=== PATIENT | male | born 1980 | race Caucasian/White ===

== ENCOUNTER 2016-08-20 13:24 | Outpatient (CLI) | payer OTHER ==
[~2016-08-20 13:24] MED LIST: BENAZEPRIL10 MG PO; RISPERIDONE4 MG PO; ZYPREXA ZYDIS20 MG PO
== END 2016-08-20 20:43 | disposition home or self-care (01) ==
LOC: MLB 13:24
PROVIDERS: ATTEND Family Medicine
DX: I12.9 Hypertensive chronic kidney disease with stage 1 through stage 4 chronic kidney disease, or unspecified chronic kidney disease (principal); N18.2 Chronic kidney disease, stage 2 (mild); E78.5 Hyperlipidemia, unspecified; E16.2 Hypoglycemia, unspecified

== ENCOUNTER 2016-12-09 15:19 | Outpatient (CLI) | payer OTHER ==
[~2016-12-09 15:19] MED LIST changes: +BENA10TA4 PO; -BENAZEPRIL10 MG PO; -RISPERIDONE4 MG PO; -ZYPREXA ZYDIS20 MG PO; +[UNRECOGNIZED DRUG - CODE] PO
[2016-12-09 16:21] LABS: ALBUMIN 3.8 g/dL (3.4-5.0); ANION GAP 13.1 (8-16); CALCIUM 8.6 mg/dL (8.5-10.1); CARBON DIOXIDE 26.4 mmol/L (21-32); CREATININE 1.2 mg/dL (0.6-1.3); POTASSIUM 3.5 mmol/L (3.5-5.1); TOTAL BILIRUBIN 0.4 mg/dL (0.0-1.0); TOTAL PROTEIN, SERUM 7.2 g/dL (6.4-8.2)
== END 2016-12-09 21:52 | disposition home or self-care (01) ==
LOC: MLB 15:19
PROVIDERS: ATTEND Family Medicine
DX: E78.5 Hyperlipidemia, unspecified (principal)
CPT/HCPCS: 36415; 80053

== ENCOUNTER 2017-02-13 15:13 | Outpatient (CLI) | payer OTHER ==
[2017-02-13 16:04] LABS: ALBUMIN 3.9 g/dL (3.4-5.0); ANION GAP 12.4 (8-16); CALCIUM 8.8 mg/dL (8.5-10.1); CARBON DIOXIDE 27.2 mmol/L (21-32); CREATININE 1.4 mg/dL (0.7-1.3); POTASSIUM 3.6 mmol/L (3.5-5.1); TOTAL BILIRUBIN 0.4 mg/dL (0.0-1.0); TOTAL PROTEIN, SERUM 7.3 g/dL (6.4-8.2)
== END 2017-02-13 21:20 | disposition home or self-care (01) ==
LOC: MLB 15:13
PROVIDERS: ATTEND Family Medicine
DX: E78.5 Hyperlipidemia, unspecified (principal); N18.2 Chronic kidney disease, stage 2 (mild); R73.9 Hyperglycemia, unspecified
CPT/HCPCS: 36415; 80053

== ENCOUNTER 2017-05-26 15:13 | Outpatient (CLI) | payer OTHER ==
[2017-05-26 16:28] LABS: ALBUMIN 3.9 g/dL (3.4-5.0); ANION GAP 9.4 (8-16); CARBON DIOXIDE 29.2 mmol/L (21-32); CHOL/HDL RATIO 6.4 (1-4.5); CREATININE 1.5 mg/dL (0.7-1.3); POTASSIUM 3.6 mmol/L (3.5-5.1); TOTAL BILIRUBIN 0.5 mg/dL (0.0-1.0)
== END 2017-05-26 20:13 | disposition home or self-care (01) ==
LOC: MLB 15:13
PROVIDERS: ATTEND Family Medicine
DX: E78.5 Hyperlipidemia, unspecified (principal); R73.9 Hyperglycemia, unspecified
CPT/HCPCS: 36415; 80053; 83036

== ENCOUNTER 2017-07-16 16:18 | Outpatient (CLI) | payer OTHER ==
[2017-07-16 18:04] LABS: ALBUMIN 3.9 g/dL (3.4-5.0); ANION GAP 15.9 (8-16); CARBON DIOXIDE 23.6 mmol/L (21-32); CHOL/HDL RATIO 5.7 (1-4.5); CREATININE 1.2 mg/dL (0.7-1.3); POTASSIUM 3.5 mmol/L (3.5-5.1); THYROID STIMULATING HORMONE 0.92 uIU/mL (0.34-3.74); TOTAL BILIRUBIN 0.4 mg/dL (0.0-1.0)
== END 2017-07-16 20:58 | disposition home or self-care (01) ==
LOC: MLB 16:18
PROVIDERS: ATTEND Family Medicine
DX: I10 Essential (primary) hypertension (principal); E78.2 Mixed hyperlipidemia; R73.01 Impaired fasting glucose
CPT/HCPCS: 36415; 80053; 83036; 84443

== ENCOUNTER 2017-11-07 13:18 | Outpatient (CLI) | payer OTHER ==
[2017-11-07 15:15] LABS: ANION GAP 11.2 (8-16); CARBON DIOXIDE 29.2 mmol/L (21-32); CHOL/HDL RATIO 6.1 (1-4.5); CREATININE 1.2 mg/dL (0.7-1.3); POTASSIUM 3.4 mmol/L (3.5-5.1); TOTAL BILIRUBIN 0.6 mg/dL (0.0-1.0)
== END 2017-11-07 19:25 | disposition home or self-care (01) ==
LOC: MLB 13:18
PROVIDERS: ATTEND Family Medicine
DX: E78.5 Hyperlipidemia, unspecified (principal); E16.2 Hypoglycemia, unspecified; E11.22 Type 2 diabetes mellitus with diabetic chronic kidney disease; I12.9 Hypertensive chronic kidney disease with stage 1 through stage 4 chronic kidney disease, or unspecified chronic kidney disease; N18.3 Chronic kidney disease, stage 3 (moderate); F17.200 Nicotine dependence, unspecified, uncomplicated; J45.909 Unspecified asthma, uncomplicated
CPT/HCPCS: 36415; 80053; 83036

== ENCOUNTER 2018-01-07 12:50 | Outpatient (CLI) | payer OTHER ==
[2018-01-07 14:13] LABS: ALBUMIN 4.2 g/dL (3.4-5.0); ANION GAP 13.8 (8-16); CARBON DIOXIDE 26.6 mmol/L (21-32); CHOL/HDL RATIO 3.9 (1-4.5); CREATININE 1.1 mg/dL (0.7-1.3); POTASSIUM 3.4 mmol/L (3.5-5.1); TOTAL BILIRUBIN 0.5 mg/dL (0.0-1.0)
== END 2018-01-07 19:19 | disposition home or self-care (01) ==
LOC: MLB 12:50
PROVIDERS: ATTEND Family Medicine
DX: E78.2 Mixed hyperlipidemia (principal); E78.5 Hyperlipidemia, unspecified; E11.22 Type 2 diabetes mellitus with diabetic chronic kidney disease; I12.9 Hypertensive chronic kidney disease with stage 1 through stage 4 chronic kidney disease, or unspecified chronic kidney disease; N18.3 Chronic kidney disease, stage 3 (moderate); N17.9 Acute kidney failure, unspecified; E78.00 Pure hypercholesterolemia, unspecified; E03.9 Hypothyroidism, unspecified
CPT/HCPCS: 36415; 80053

== ENCOUNTER 2020-08-02 10:43 | Outpatient (CLI) | payer OTHER ==
[~2020-08-02 10:43] MED LIST changes: -BENA10TA4 PO; +BENA10TA59 PO
[2020-08-02 13:21] LABS: ALBUMIN 4.2 g/dL (3.4-5.0); ANION GAP 11.1 (8-16); CARBON DIOXIDE 27.9 mmol/L (21-32); CHOL/HDL RATIO 5.6 (1-4.5); CREATININE 1.1 mg/dL (0.6-1.3); THYROID STIMULATING HORMONE 0.94 uIU/mL (0.34-3.74); TOTAL BILIRUBIN 0.6 mg/dL (0.0-1.0)
[2020-08-03 08:08] LABS: T4 FREE (DIRECT) 1.22 ng/dL (0.82-1.77)
== END 2020-08-02 17:58 | disposition home or self-care (01) ==
LOC: MLB 10:43
PROVIDERS: ATTEND Family Medicine
DX: I12.9 Hypertensive chronic kidney disease with stage 1 through stage 4 chronic kidney disease, or unspecified chronic kidney disease (principal); N18.2 Chronic kidney disease, stage 2 (mild); E78.2 Mixed hyperlipidemia; F70 Mild intellectual disabilities; R73.01 Impaired fasting glucose; Z23 Encounter for immunization; Z68.25 Body mass index [BMI] 25.0-25.9, adult
CPT/HCPCS: 36415; 80053; 83036; 84439; 84443

== ENCOUNTER 2020-11-21 11:20 | Outpatient (CLI) | payer OTHER ==
[2020-11-21 12:29] LABS: CHOL/HDL RATIO 6.8 (1-4.5)
== END 2020-11-21 17:39 | disposition home or self-care (01) ==
LOC: MLB 11:20
PROVIDERS: ATTEND Family Medicine
DX: E78.2 Mixed hyperlipidemia (principal)
CPT/HCPCS: 36415

== ENCOUNTER 2021-01-15 09:15 | Outpatient (CLI) | payer OTHER ==
[2021-01-15 10:32] LABS: CHOL/HDL RATIO 6.8 (1-4.5)
== END 2021-01-15 20:22 | disposition home or self-care (01) ==
LOC: MLB 09:15
PROVIDERS: ATTEND Family Medicine
DX: E78.2 Mixed hyperlipidemia (principal)
CPT/HCPCS: 36415

== ENCOUNTER 2021-05-08 09:23 | Outpatient (CLI) | payer OTHER ==
[2021-05-08 11:12] LABS: ANION GAP 13.4 (8-16); CARBON DIOXIDE 26.6 mmol/L (21-32); CHOL/HDL RATIO 6.8 (1-4.5); CREATININE 1.1 mg/dL (0.6-1.3); THYROID STIMULATING HORMONE 1.29 uIU/mL (0.34-3.74); TOTAL BILIRUBIN 0.4 mg/dL (0.0-1.0)
== END 2021-05-08 22:02 | disposition home or self-care (01) ==
LOC: MLB 09:23
PROVIDERS: ATTEND Family Medicine
DX: I10 Essential (primary) hypertension (principal); E78.5 Hyperlipidemia, unspecified
CPT/HCPCS: 36415; 80053; 84443

== ENCOUNTER 2021-09-17 08:55 | Outpatient (CLI) | payer OTHER ==
[2021-09-17 10:24] LABS: ANION GAP 12.3 (8-16); CARBON DIOXIDE 28.8 mmol/L (21-32); CHOL/HDL RATIO 6.3 (1-4.5); CREATININE 1.2 mg/dL (0.6-1.3); POTASSIUM 4.1 mmol/L (3.5-5.1); TOTAL BILIRUBIN 0.4 mg/dL (0.0-1.0)
== END 2021-09-17 20:43 | disposition home or self-care (01) ==
LOC: MLB 08:55
PROVIDERS: ATTEND Family Medicine
DX: I10 Essential (primary) hypertension (principal); R73.01 Impaired fasting glucose; E78.2 Mixed hyperlipidemia
CPT/HCPCS: 36415; 80053; 83036

== ENCOUNTER 2022-03-05 08:41 | Outpatient (CLI) | payer OTHER ==
[2022-03-05 11:07] LABS: ALBUMIN 3.9 g/dL (3.4-5.0); CARBON DIOXIDE 24.5 mmol/L (21-32); CHOL/HDL RATIO 5.7 (1-4.5); CREATININE 1.2 mg/dL (0.6-1.3); POTASSIUM 3.5 mmol/L (3.5-5.1); TOTAL BILIRUBIN 0.7 mg/dL (0.0-1.0)
== END 2022-03-05 20:05 | disposition home or self-care (01) ==
LOC: MLB 08:41
PROVIDERS: ATTEND Family Medicine
DX: I10 Essential (primary) hypertension (principal); E78.2 Mixed hyperlipidemia
CPT/HCPCS: 36415; 80053

== ENCOUNTER 2022-07-09 08:14 | Outpatient (CLI) | payer OTHER ==
[2022-07-09 09:39] LABS: BASOPHILS # (AUTO) 0.1 K/uL (0.00-0.22); BASOPHILS % (AUTO) 1.1 % (0.0-2.0); EOSINOPHILS # (AUTO) 0.3 K/uL (0-0.4); EOSINOPHILS % (AUTO) 5.3 % (0.0-4.0); HEMOGLOBIN 14.6 g/dL (12.0-18.0); LYMPHOCYTES # (AUTO) 1.6 K/uL (2.0-11.5); LYMPHOCYTES % (AUTO) 29.7 % (20.5-51.1); MEAN CORPUSCULAR HEMOGLOBIN 31 pg (27-31); MEAN CORPUSCULAR HGB CONC 36 g/dL (33-37); MEAN CORPUSCULAR VOLUME 86.2 fL (80-94); MONOCYTES # (AUTO) 0.4 K/uL (0.8-1.0); MONOCYTES % (AUTO) 6.6 % (1.7-9.3); NEUTROPHILS # (AUTO) 3.1 K/uL (1.8-7.7); NEUTROPHILS % (AUTO) 57.3 % (42.2-75.2); PLATELET COUNT (AUTO) 215 K/uL (140-450); RED BLOOD CELL COUNT(AUTO) 4.75 MIL/uL (4.20-6.10); RED CELL DISTRIBUTION WIDTH 12.7 % (11.6-13.7); WHITE BLOOD COUNT (AUTO) 5.5 K/uL (4.8-10.8)
[2022-07-09 10:24] LABS: ALBUMIN 4.4 g/dL (3.4-5.0); CARBON DIOXIDE 28.1 mmol/L (21-32); CHOL/HDL RATIO 7.2 (1-4.5); CREATININE 1.2 mg/dL (0.6-1.3); POTASSIUM 4.1 mmol/L (3.5-5.1); THYROID STIMULATING HORMONE 1.23 uIU/mL (0.34-3.74); TOTAL BILIRUBIN 0.5 mg/dL (0.0-1.0)
[2022-07-10 08:08] LABS: PROLACTIN 11.5 ng/mL (4.0-15.2)
== END 2022-07-09 19:21 | disposition home or self-care (01) ==
LOC: MLB 08:14
PROVIDERS: ATTEND Family Medicine
DX: I10 Essential (primary) hypertension (principal); E78.2 Mixed hyperlipidemia; R73.01 Impaired fasting glucose
CPT/HCPCS: 36415; 80053; 83036; 84146; 84443; 85025

== ENCOUNTER 2022-12-02 09:34 | Outpatient (CLI) | payer OTHER ==
[2022-12-02 10:16] LABS: ALBUMIN 4.1 g/dL (3.4-5.0); ANION GAP 12.2 (8-16); CARBON DIOXIDE 25.9 mmol/L (21-32); CHOL/HDL RATIO 3.4 (1-4.5); CREATININE 1.2 mg/dL (0.6-1.3); POTASSIUM 4.1 mmol/L (3.5-5.1); TOTAL BILIRUBIN 0.5 mg/dL (0.0-1.0)
== END 2022-12-02 20:02 | disposition home or self-care (01) ==
LOC: MLB 09:34
PROVIDERS: ATTEND Family Medicine
DX: E78.2 Mixed hyperlipidemia (principal); R73.01 Impaired fasting glucose; N18.2 Chronic kidney disease, stage 2 (mild)
CPT/HCPCS: 36415; 80053; 83036

== ENCOUNTER 2023-03-10 08:39 | Outpatient (CLI) | payer OTHER ==
[2023-03-10 10:24] LABS: ALBUMIN 4.1 g/dL (3.4-5.0); ANION GAP 13.5 (8-16); CALCIUM 8.7 mg/dL (8.5-10.1); CARBON DIOXIDE 28.2 mmol/L (21-32); CHOL/HDL RATIO 4.3 (1-4.5); CREATININE 1.3 mg/dL (0.6-1.3); POTASSIUM 3.7 mmol/L (3.5-5.1); TOTAL BILIRUBIN 0.6 mg/dL (0.0-1.0)
== END 2023-03-10 19:58 | disposition home or self-care (01) ==
LOC: MLB 08:39
PROVIDERS: ATTEND Family Medicine
DX: I10 Essential (primary) hypertension (principal); E78.2 Mixed hyperlipidemia; R73.01 Impaired fasting glucose
CPT/HCPCS: 36415; 80053; 83036

== ENCOUNTER 2023-05-29 08:40 | Outpatient (CLI) | payer OTHER ==
[2023-05-29 09:36] LABS: ALBUMIN 4.3 g/dL (3.4-5.0); ANION GAP 13.9 (8-16); CALCIUM 8.7 mg/dL (8.5-10.1); CHOL/HDL RATIO 4.7 (1-4.5); CREATININE 1.3 mg/dL (0.6-1.3); POTASSIUM 3.9 mmol/L (3.5-5.1); TOTAL BILIRUBIN 0.4 mg/dL (0.0-1.0); TOTAL PROTEIN, SERUM 7.1 g/dL (6.4-8.2)
== END 2023-05-29 20:58 | disposition home or self-care (01) ==
LOC: MLB 08:40
PROVIDERS: ATTEND Family Medicine
DX: I10 Essential (primary) hypertension (principal); E78.5 Hyperlipidemia, unspecified
CPT/HCPCS: 36415; 80053

== ENCOUNTER 2023-09-02 08:25 | Outpatient (CLI) | payer OTHER ==
[2023-09-02 09:28] LABS: ALBUMIN 4.1 g/dL (3.4-5.0); ANION GAP 11.8 (8-16); CALCIUM 9.8 mg/dL (8.5-10.1); CHOL/HDL RATIO 4.3 (1-4.5); CREATININE 1.3 mg/dL (0.6-1.3); POTASSIUM 3.8 mmol/L (3.5-5.1); TOTAL BILIRUBIN 0.4 mg/dL (0.0-1.0)
== END 2023-09-02 20:46 | disposition home or self-care (01) ==
LOC: MLB 08:25
PROVIDERS: ATTEND Family Medicine
DX: I12.9 Hypertensive chronic kidney disease with stage 1 through stage 4 chronic kidney disease, or unspecified chronic kidney disease (principal); N18.2 Chronic kidney disease, stage 2 (mild); E78.2 Mixed hyperlipidemia; R73.01 Impaired fasting glucose
CPT/HCPCS: 36415; 80053; 83036

== ENCOUNTER 2023-11-20 08:30 | Outpatient (CLI) | payer OTHER ==
[2023-11-20 09:37] LABS: ALBUMIN 4.2 g/dL (3.4-5.0); ANION GAP 11.3 (8-16); CALCIUM 9.1 mg/dL (8.5-10.1); CARBON DIOXIDE 27.7 mmol/L (21-32); CREATININE 1.2 mg/dL (0.6-1.3); TOTAL BILIRUBIN 0.5 mg/dL (0.0-1.0); TOTAL PROTEIN, SERUM 7.3 g/dL (6.4-8.2)
== END 2023-11-20 22:03 | disposition home or self-care (01) ==
LOC: MLB 08:30
PROVIDERS: ATTEND Family Medicine
DX: E78.5 Hyperlipidemia, unspecified (principal); R73.03 Prediabetes
CPT/HCPCS: 36415; 80053; 83036

== ENCOUNTER 2024-03-05 10:06 | Outpatient (CLI) | payer OTHER ==
[2024-03-05 10:35] LABS: BASOPHILS # (AUTO) 0.1 K/uL (0.00-0.22); BASOPHILS % (AUTO) 1.3 % (0.0-2.0); EOSINOPHILS # (AUTO) 0.2 K/uL (0-0.4); EOSINOPHILS % (AUTO) 4.3 % (0.0-4.0); HEMATOCRIT 38.7 % (36-52); HEMOGLOBIN 13.5 g/dL (12.0-18.0); LYMPHOCYTES # (AUTO) 1.3 K/uL (2.0-11.5); MEAN CORPUSCULAR HEMOGLOBIN 31 pg (27-31); MEAN CORPUSCULAR HGB CONC 35 g/dL (33-37); MEAN CORPUSCULAR VOLUME 89.3 fL (80-94); MONOCYTES # (AUTO) 0.4 K/uL (0.8-1.0); NEUTROPHILS # (AUTO) 3.5 K/uL (1.8-7.7); NEUTROPHILS % (AUTO) 63.4 % (42.2-75.2); PLATELET COUNT (AUTO) 234 K/uL (140-450); RED BLOOD CELL COUNT(AUTO) 4.34 MIL/uL (4.20-6.10); RED CELL DISTRIBUTION WIDTH 12.7 % (11.6-13.7); WHITE BLOOD COUNT (AUTO) 5.5 K/uL (4.8-10.8)
[2024-03-05 10:59] LABS: ALBUMIN 4.1 g/dL (3.4-5.0); ANION GAP 12.5 (8-16); CALCIUM 10.4 mg/dL (8.5-10.1); CARBON DIOXIDE 26.7 mmol/L (21-32); CHOL/HDL RATIO 3.5 (1-4.5); CREATININE 1.2 mg/dL (0.6-1.3); POTASSIUM 4.2 mmol/L (3.5-5.1); TOTAL BILIRUBIN 0.4 mg/dL (0.0-1.0); TOTAL PROTEIN, SERUM 7.1 g/dL (6.4-8.2)
== END 2024-03-05 17:22 | disposition home or self-care (01) ==
LOC: MDS 10:06
PROVIDERS: ATTEND Family Medicine
DX: I12.9 Hypertensive chronic kidney disease with stage 1 through stage 4 chronic kidney disease, or unspecified chronic kidney disease (principal); N18.2 Chronic kidney disease, stage 2 (mild); E78.2 Mixed hyperlipidemia; R73.03 Prediabetes
CPT/HCPCS: 36415; 80053; 83036; 85025